=== PATIENT | female | born 2000 | race Two or more races ===

== ENCOUNTER 2019-08-10 22:46 | Emergency (ER) | payer OTHER ==
[2019-08-11] MEDS ORDERED: DEXAMETHASONE SOD PHOS INJ 10 MG/1 ML VIAL IM ONE (00:10)
[2019-08-11] MEDS ORDERED: ACETAMINOPHEN 325 MG TABLET PO ONE (00:10)
--- NOTE | 2019-08-11 00:12 | ER Document Report ---
ED Medical Screen (RME) - General Chief Complaint: Sore Throat Stated Complaint: THROAT SWELLING Time Seen by Provider: 08/11/19 00:06 Mode of Arrival: Ambulatory Information source: Patient Notes: Otherwise healthy 19-year-old female presented emergency department chief complaint of multiple symptoms. Patient reports sore throat of the last few days, fever up to 103 at home and abnormal vaginal discharge. Denies vaginal pain. Reports some dysuria. Exam: Bilateral tonsillar swelling noted with exudates. Unable to perform appropriate genitourinary/abdominal exam in triage I have greeted and performed a rapid initial assessment of this patient. A comprehensive ED assessment and evaluation of the patient, analysis of test results and completion of the medical decision making process will be conducted by additional ED providers. I have specifically instructed the patient or family members with the patient to immediately return to any nursing staff should anything change in the patient's condition or with their chief complaint. TRAVEL OUTSIDE OF THE [place] IN LAST 30 DAYS: No - Related Data Allergies/Adverse Reactions: No Known Allergies Allergy (Unverified 08/11/19 00:10) Physical Exam - Vital signs Vitals: Temp Pulse Resp BP Pulse Ox 101.0 F H 120 H 20 145/72 H 98 08/10/19 23:03 08/10/19 23:03 08/10/19 23:03 08/10/19 23:03 08/10/19 23:03 Course - Vital Signs Vital signs: Temp Pulse Resp BP Pulse Ox 101.0 F H 120 H 20 145/72 H 98 08/10/19 23:03 08/10/19 23:03 08/10/19 23:03 08/10/19 23:03 08/10/19 23:03
[2019-08-11 00:45] LABS: RBCS (WET MOUNT) FEW RBCS SEEN; T.VAGINALIS (WET MOUNT) NO TRICHOMONAS SEEN; WBCS (WET MOUNT) 1+ WBCS SEEN; YEAST (WET MOUNT) NO YEAST SEEN
[2019-08-11 00:48] LABS: APPEARANCE,URINE SLIGHTLY-CLOUDY; BILIRUBIN,URINE NEGATIVE (NEGATIVE); COLOR,URINE YELLOW; GLUCOSE, URINE NEGATIVE (NEGATIVE); KETONES,URINE NEGATIVE (NEGATIVE); LEUKOCYTE ESTERASE,URINE TRACE (NEGATIVE); NITRITE,URINE NEGATIVE (NEGATIVE); PROTEIN,URINE 100 mg/dL (NEGATIVE); URINE SPECIFIC GRAVITY 1.021; UROBILINOGEN,URINE NEGATIVE mg/dL (<2.0)
--- NOTE | 2019-08-11 01:13 | ER Document Report ---
HPI - HPI Time Seen by Provider: 08/11/19 00:06 Pain Level: 4 Notes: Otherwise healthy 19-year-old female presented emergency department chief complaint of multiple symptoms. Patient reports sore throat of the last few days, fever up to 103 at home and abnormal vaginal discharge. Denies vaginal pain. Reports some dysuria. - REPRODUCTIVE LMP: 1 mnth Reproductive: DENIES: : Past Medical History - General Information source: Patient - Social History Smoking Status: Never Smoker Family History: Reviewed & Not Pertinent Patient has suicidal ideation: No Patient has homicidal ideation: No - Medical History Medical History: Negative Surgical Hx: Negative - Immunizations Immunizations up to date: Yes Vertical Provider Document - CONSTITUTIONAL Notes: PHYSICAL EXAMINATION: GENERAL: Well-appearing, well-nourished and in no acute distress. HEAD: Atraumatic, normocephalic. EYES: Pupils equal round and reactive to light, extraocular movements intact, conjunctiva are normal. ENT: Nares patent, bilateral tonsillar swelling with exudates, no evidence of peritonsillar abscess, uvula midline.. Moist mucous membranes. NECK: Normal range of motion, supple without lymphadenopathy LUNGS: Breath sounds clear to auscultation bilaterally and equal. No wheezes rales or rhonchi. HEART: Regular rate and rhythm without murmurs ABDOMEN: Soft, nontender, nondistended abdomen. No guarding, no rebound. No masses appreciated. Female : No CVA tenderness Musculoskeletal: Normal range of motion, no pitting or edema. No cyanosis. NEUROLOGICAL: Cranial nerves grossly intact. Normal speech, normal gait. Normal sensory, motor exams PSYCH: Normal mood, normal affect. SKIN: Warm, Dry, normal turgor, no rashes or lesions noted. - INFECTION CONTROL TRAVEL OUTSIDE OF THE [place] IN LAST 30 DAYS: No Course - Re-evaluation Re-evalutation: Rapid strep was negative. Urinalysis consistent with urinary tract infection. Will start patient on antibiotics for urinary tract infection. Patient given strict ED return precautions regarding the sore throat symptoms to include worsening pain, difficulty swallowing or difficulty speaking. Patient verbalized understanding and agreement with same. - Vital Signs Vital signs: Temp Pulse Resp BP Pulse Ox 101.0 F H 120 H 20 145/72 H 98 08/10/19 23:03 08/10/19 23:03 08/10/19 23:03 08/10/19 23:03 08/10/19 23:03 - Laboratory Laboratory results interpreted by me: 08/11/19 00:20 Urine Protein 100 H Urine Blood SMALL H Ur Leukocyte Esterase TRACE H Discharge - Discharge Clinical Impression: Sore throat Urinary tract infection Qualifiers: Urinary tract infection type: site unspecified Hematuria presence: without adrien turia Qualified Code(s): N39.0 - Urinary tract infection, site not specified Condition: Stable Disposition: HOME, SELF-CARE Instructions: Sore Throat ([facility]), Urinary Tract Infection ([facility]) Additional Instructions: The urinalysis today shows that you do have a urinary tract infection. The rapid strep test was negative although your throat culture is pending. The cephalexin that I am giving you for your urinary tract infection would also treat strep throat. Please continue to drink plenty of fluids. Take Tylenol or ibuprofen for any pain or fever. Our culture nurse will call you if there is any abnormality on your throat culture. Return to the emergency department with new or worsening symptoms to include persistent vomiting, inability to swallow, any respiratory distress or any other concerning symptoms. Prescriptions: Cephalexin [Keflex] 500 mg PO BID #14 capsule Forms: Return to Work
[2019-08-11 01:32] VITALS: BP 115/66
[2019-08-11 02:10] LABS: CHLAM PCR NOT DETECTED (NOT DETECT)
== END 2019-08-11 02:37 | disposition home or self-care (01) ==
LOC: ER 22:46
DX: J02.9 Acute pharyngitis, unspecified (principal); N39.0 Urinary tract infection, site not specified; R50.9 Fever, unspecified; N89.8 Other specified noninflammatory disorders of vagina
CPT/HCPCS: 99283; 96372; 87070; 87210; 87880; 87077; 81001; 87491; 87591; J1100

== ENCOUNTER 2019-08-14 06:28 | Observation (INO) | payer OTHER ==
[2019-08-14] MEDS ORDERED: ONDANSETRON 4 MG TAB.RAPDIS PO ONE (06:51)
[2019-08-14 07:22] LABS: ABSOLUTE LYMPHOCYTES (AUTO) 0.8 10^3/uL (0.5-4.7); ABSOLUTE MONOCYTES (AUTO) 0.7 10^3/uL (0.1-1.4); ABSOLUTE NEUT (AUTO) 8.3 10^3/uL (1.7-8.2); BASOPHILS % (AUTO) 0.2 % (0-2); HEMATOCRIT 42.4 % (36.0-47.0); HEMOGLOBIN 14.5 g/dL (12.0-15.5); LYMPHOCYTES % (AUTO) 8.4 % (13-45); MEAN CORPUSCULAR HEMOGLOBIN 28.9 pg (27.0-33.4); MEAN CORPUSCULAR HGB CONC 34.2 g/dL (32.0-36.0); MEAN CORPUSCULAR VOLUME 85 fl (80-97); MONOCYTES % (AUTO) 7.1 % (3-13); PLATELET COUNT 197 10^3/uL (150-450); RED BLOOD COUNT 5.01 10^6/uL (3.72-5.28); RED CELL DISTRIBUTION WIDTH 13.4 % (11.5-14.0); SEGMENTED NEUTROPHILS % (AUTO) 84.3 % (42-78); TOTAL CELLS COUNTED % (AUTO) 100 %; WHITE BLOOD COUNT 9.8 10^3/uL (4.0-10.5)
[2019-08-14 07:52] LABS: A TYPE INFLUENZA AG NEGATIVE (NEGATIVE); B INFLUENZA AG NEGATIVE (NEGATIVE)
[2019-08-14] MEDS ORDERED: KETOROLAC TROMETHAMINE INJ/PF 30 MG/1 ML SDV IV ONE (10:43)
[2019-08-14] MEDS ORDERED: NORMAL SALINE 1000 ML 1,000 ML IV ONE (10:43)
[2019-08-14] MEDS ORDERED: DEXAMETHASONE SOD PHOS INJ 10 MG/1 ML VIAL IV ONE (10:43)
--- NOTE | 2019-08-14 11:02 | ER Document Report ---
ED ENT - General Chief Complaint: Sore Throat Stated Complaint: SORE THROAT Time Seen by Provider: 08/14/19 10:21 Notes: Patient is a 19-year-old female who presents to the emergency department with a chief complaint of sore throat. Patient reports that she has had a sore throat for about 6 days. Patient reports that she was seen here on August 10, states that she was prophylactically treated for gonorrhea and chlamydia, had a negative strep test. Patient reports she did go to the [facility] the next day was placed on antibiotics for urinary tract infection. Patient reports she did get these filled and is currently taking Keflex. Patient reports that her sore throat has significantly gotten worse and she feels like i t is very painful to swallow. Patient reports she continues to have blisters on both of her tonsils and that she feels slightly more swollen on the left side. Patient reports a fever of 101 and 103 at home. Patient reports nausea without vomiting. TRAVEL OUTSIDE OF THE [place] IN LAST 30 DAYS: No - Related Data Allergies/Adverse Reactions: No Known Allergies Allergy (Unverified 08/11/19 00:10) Home Medications: had rocephin and zithromax for GC and chlymdia Past Medical History - General Information source: Patient - Social History Smoking Status: Never Smoker Frequency of alcohol use: None Drug Abuse: None Lives with: Spouse/Significant other Family History: Reviewed & Not Pertinent Patient has suicidal ideation: No Patient has homicidal ideation: No - Past Medical History Cardiac Medical History: Reports: None Denies: Hx Atrial Fibrillation, Hx Congestive Heart Failure, Hx Heart Attack, Hx Hypertension Pulmonary Medical History: Reports: None Denies: Hx Asthma, Hx Bronchitis, Hx COPD, Hx Pneumonia, Hx Tuberculosis EENT Medical History: Reports: None Neurological Medical History: Reports: None. Denies: Hx Migraine, Hx Seizures Endocrine Medical History: Reports: None. Denies: Hx Diabetes Mellitus Type 1, Hx Diabetes Mellitus Type 2 Renal/ Medical History: Reports: None. Denies: Hx End Stage Renal Disease, Hx Kidney Stones Malignancy Medical History: Reports: None GI Medical History: Reports: None. Denies: Hx Gastroesophageal Reflux Disease, Hx Hiatal Hernia, Hx Ulcer Musculoskeletal Medical History: Reports None, Denies Hx Arthritis Skin Medical History: Reports None Psychiatric Medical History: Reports: None Denies: Hx Attention Deficit Hyperactivity Disorder, Hx Bipolar Disorder, Hx Depression, Hx Schizophrenia Traumatic Medical History: Reports: None Infectious Medical History: Reports: None Surgical Hx: Negative - Immunizations Immunizations up to date: Yes Review of Systems - Review of Systems Constitutional: No symptoms reported EENT: See HPI Cardiovascular: No symptoms reported Respiratory: No symptoms reported Gastrointestinal: See HPI Genitourinary: No symptoms reported Female Genitourinary: No symptoms reported Musculoskeletal: No symptoms reported Skin: No symptoms reported Hematologic/Lymphatic: No symptoms reported Neurological/Psychological: No symptoms reported Physical Exam - Vital signs Vitals: Temp Pulse Resp BP Pulse Ox 100.5 F H 113 H 16 126/81 H 98 08/14/19 06:36 08/14/19 06:36 08/14/19 06:36 08/14/19 06:36 08/14/19 06:36 Interpretation: Tachycardic, Febrile - Notes Notes: GENERAL: Well-appearing, well-nourished and in no acute distress. Muffled voice. HEAD: Atraumatic, normocephalic. EYES: Pupils equal round and reactive to light, extraocular movements intact, sclera anicteric, conjunctiva are normal. ENT: TMs normal, nares patent, patient does have a significant tonsillar hypertrophy +2 on the right and +3 on the left. Uvula is midline. There is an excessive amount of exudate on bilateral tonsils. Oropharynx is erythematous. Moist mucous membranes. NECK: Normal range of motion, supple with bilateral lymphadenopathy, no JVD. LUNGS: Breath sounds clear to auscultation bilaterally and equal. No wheezes rales or rhonchi. HEART: Regular rate and rhythm without murmurs, rubs or gallops. ABDOMEN: Soft, nontender, normoactive bowel sounds. No guarding, no rebound. No masses appreciated. BACK: No cervical, thoracic, lumbar midline tenderness. No saddle anesthesia, normal distal neurovascular exam. GENITOURINARY: Deferred. EXTREMITIES: Normal range of motion, no pitting or edema. No clubbing or cyanosis. NEUROLOGICAL: Cranial nerves II through XII grossly intact. Normal speech, normal gait. PSYCH: Normal mood, normal affect. SKIN: Warm, Dry, normal turgor, no rashes or lesions noted. Course - Re-evaluation Re-evalutation: 08/14/19 11:02 We will give the patient IV fluids, Toradol and Decadron for the throat pain and inflammation as well as obtaining a CT soft tissue of the neck to rule out peritonsillar abscess as she is significantly more swollen on the left than the right. Patient is able to swallow her own secretions at this time. 08/14/19 13:07 Upon re-evaluation patient reports feeling slightly better. Patient is not as hoarse in her voice. Patient able to swallow secretions. I did tell the patient to remain n.p.o. due to an intra-tonsillar abscess. Will initiate IV clindamycin. 08/14/19 13:38 Dr. Jackson to come to ER for consult and possible admission. 08/14/19 14:[address] Jackson who accepted admission. Patient remains stable, no airway compromise. No drooling, no stridor, patient reports feeling better. - Vital Signs Vital signs: Temp Pulse Resp BP Pulse Ox 99.0 F 103 H 17 125/77 100 08/14/19 11:26 08/14/19 11:26 08/14/19 11:26 08/14/19 11:26 08/14/19 11:26 - Laboratory Result Diagrams: 08/14/19 07:03 Laboratory results interpreted by me: 08/14/19 08/14/19 07:03 11:20 Lymph % (Auto) 8.4 L Absolute Neuts (auto) 8.3 H Seg Neutrophils % 84.3 H Urine Ketones 80 H 08/14/19 14:49 Laboratory 08/14/19 08/14/19 08/14/19 07:03 07:03 07:03 WBC 9.8 RBC 5.01 Hgb 14.5 Hct 42.4 MCV 85 MCH 28.9 MCHC 34.2 RDW 13.4 Plt Count 197 Lymph % (Auto) 8.4 L [place] % (Auto) 7.1 Eos % (Auto) 0.0 Baso % (Auto) 0.2 Absolute Neuts (auto) 8.3 H Absolute Lymphs (auto) 0.8 Absolute Monos (auto) 0.7 Absolute Eos (auto) 0.0 Absolute Basos (auto) 0.0 Seg Neutrophils % 84.3 H Serum HCG, Qual NEGATIVE Urine Color Urine Appearance Urine pH Ur Specific [place] Urine Protein Urine Glucose (UA) Urine Ketones Urine Blood Urine Nitrite Urine Bilirubin Urine Urobilinogen Ur Leukocyte Esterase Urine WBC (Auto) Urine RBC (Auto) Squamous Epi Cells Auto Urine Mucus (Auto) Urine Ascorbic Acid Monotest NEGATIVE Influenza A (Rapid) Influenza B (Rapid) Group A Strep Rapid 08/14/19 08/14/19 08/14/19 07:03 11:14 11:20 WBC RBC Hgb Hct MCV MCH MCHC RDW Plt Count Lymph % (Auto) [place] % (Auto) Eos % (Auto) Baso % (Auto) Absolute Neuts (auto) Absolute Lymphs (auto) Absolute Monos (auto) Absolute Eos (auto) Absolute Basos (auto) Seg Neutrophils % Serum HCG, Qual Urine Color YELLOW Urine Appearance CLEAR Urine pH 7.0 Ur Specific [place] 1.049 Urine Protein NEGATIVE Urine Glucose (UA) NEGATIVE Urine Ketones 80 H Urine Blood NEGATIVE Urine Nitrite NEGATIVE Urine Bilirubin NEGATIVE Urine Urobilinogen NEGATIVE Ur Leukocyte Esterase NEGATIVE Urine WBC (Auto) 1 Urine RBC (Auto) 2 Squamous Epi Cells Auto <1 Urine Mucus (Auto) RARE Urine Ascorbic Acid NEGATIVE Monotest Influenza A (Rapid) NEGATIVE Influenza B (Rapid) NEGATIVE Group A Strep Rapid NEGATIVE - Diagnostic Test Radiology reviewed: Reports reviewed Radiology results interpreted by me: 08/14/19 12:[address] 08/14/19 10:44 IMPRESSION: Bilateral tonsillitis with 2 cm intra tonsillar abscess on the left side Discharge - Discharge Clinical Impression: Abscess, intratonsillar, Throat pain in adult Condition: Stable Disposition: ADMITTED OBSERVATION Admitting Provider: Onwe (Hospitalist) Unit Admitted: Telemetry
--- NOTE | 2019-08-14 11:59 | RADIOLOGY REPORT (SQ) ---
EXAM DESCRIPTION: CT SOFT TISSUE NECK WITH COMPLETED DATE/TIME: 08/14/2019 11:24 am REASON FOR STUDY: r/o peritonsillar abscess, left throat swelling COMPARISON: None. TECHNIQUE: Post IV contrasted scanning from skull base through lung apices with review of bone, soft tissue and lung windows. Reconstructed coronal and sagittal MPR images reviewed. All images stored on PACS. All CT scanners at this facility use dose modulation, iterative reconstruction, and/or weight based d osing when appropriate to reduce radiation dose to as low as reasonably achievable (ALARA). [facility]: Dose Right [facility]: CareDose [facility]: Dose Right [facility]: Teradose 4D [facility]: [place] CONTRAST TYPE AND DOSE: contrast/concentration: Isovue 350.00 mg/ml; Total Contrast Delivered: 74.0 ml; Total Saline Delivered: 55.0 ml RENAL FUNCTION: None required. The patient is less than 50 years old. RADIATION DOSE: 22 mGy . LIMITATIONS: Streak artifact from metallic dental work FINDINGS: Bilateral pharyngeal tonsils are diffusely enlarged, each measuring about 3.5 x 2.8 x 2.5 cm in size. There is [id number] pharyngeal airway narrowing with medial bulging of the tonsils . In the upper half of the left pharyngeal tonsil, a hypodense area about 2 cm in diameters present on coronal image 37 and axial image 31 worrisome for intra tonsillar abscess. Parapharyngeal fat is well-maintained. There is also inflammation/infection adenoids which measure 1.5 cm in thickness on the sagittal recon structions. No middle ear effusions or mastoid fluid. Diffuse cervical adenopathy is present, the largest lymph node is along the left jugulodigastric yasmin on 2 x 1.3 cm in size. SKULL BASE: Inferior brain parenchyma in the field of view is normal. MAJOR SALIVARY GLANDS: No solid or cystic masses. No inflammatory changes. LYMPHADENOPATHY: As above MUCOSAL MASSES OR ASYMMETRY: Tonsils as above LARYNX/CORDS: No abnormal findings. VASCULAR STRUCTURES: The major vessels are patent. LUNG APICES: Clear. BONES: Intact. THYROID: Normal size. No masses. PARANASAL SINUSES: Clear. OTHER: No other significant finding. IMPRESSION: Bilateral tonsillitis with 2 cm intra tonsillar abscess on the left side TECHNICAL DOCUMENTATION: JOB ID: [id number] Quality ID # [id number]: Final reports with documentation of one or more dose reduction techniques (e.g., Au tomated exposure control, adjustment of the mA and/or kV according to patient size, use of iterative reconstruction technique) 2010 [employer]- All Rights Reserved Reading location - IP/workstation name: [email or web address]
[2019-08-14 12:51] LABS: APPEARANCE,URINE CLEAR; BILIRUBIN,URINE NEGATIVE (NEGATIVE); COLOR,URINE YELLOW; GLUCOSE, URINE NEGATIVE (NEGATIVE); KETONES,URINE 80 mg/dL (NEGATIVE); LEUKOCYTE ESTERASE,URINE NEGATIVE (NEGATIVE); NITRITE,URINE NEGATIVE (NEGATIVE); PROTEIN,URINE NEGATIVE (NEGATIVE); URINE SPECIFIC GRAVITY 1.049; UROBILINOGEN,URINE NEGATIVE mg/dL (<2.0)
[2019-08-14] MEDS ORDERED: CLINDAMYCIN 600 MG/D5W RTU 600 MG/50 ML RTUPB IV ONE (12:54)
[2019-08-14] MEDS ORDERED: ONDANSETRON HCL INJ/PF 4 MG/2 ML SDV IV PRN (14:39)
--- NOTE | 2019-08-14 15:00 | PDOC H&P ---
History of Present Illness Patient complains of: Sore throat, dysphagia History of Present Illness: SELINA GARCIA is a 19 year old female with no significant past medical history who presents to the hospital with complaints of soreness in the throat as well as difficulty swallowing food. Patient symptoms started several days ago during the [place] break and has persisted and gradually gotten worse. Admits to feeling feverish initially. Endorses associated odynophagia which has improved since receiving treatment in the ER. Denies any recent upper respiratory tract infection or dental procedures. Last saw dentist in December for wisdom tooth extraction. On the other dental history is cavities in the tooth. Patient denies any difficulty breathing. Past Medical History Cardiac Medical History: Reports: None Denies: Atrial Fibrillation, Congestive Heart Failure, Myocardial Infarction, Hypertension Pulmonary Medical History: Reports: None Denies: Asthma, Bronchitis, Chronic Obstructive Pulmonary Disease (COPD), Pneumonia, Tuberculosis EENT Medical History: Reports: None Neurological Medical History: Reports: None Denies: Migraine, Seizures Endocrine Medical History: Reports: None Denies: Diabetes Mellitus Type 1, Diabetes Mellitus Type 2 Renal/ Medical History: Reports: None Denies: End Stage Renal Disease Malignancy Medical History: Reports: None GI Medical History: Reports: None Denies: Gastroesophageal Reflux Disease, Hiatal Hernia Musculoskeltal Medical History: Reports: None Denies: Arthritis Skin Medical History: Reports: None Psychiatric Medical History: Reports: None Denies: Attention Deficit Hyperactivity Disorder, Bipolar Disorder, Depression Traumatic Medical History: Reports: None Hematology: Denies: Anemia, Sickle Cell Disease Infectious Medical History: Reports: None Past Surgical History Past Surgical History: Reports: Other - [place] teeth removal Social History Information Source: Patient Lives with: Spouse/Significant other Smoking Status: Never Smoker Electronic Cigarette use?: No Frequency of Alcohol Use: Social Hx Recreational Drug Use: No Hx Prescription Drug Abuse: No - Advance Directive Resuscitation Status: Full Code Family History Family History: None Parental Family History Reviewed: Yes Children Family History Reviewed: Yes Sibling(s) Family History Reviewed.: Yes Medication/Allergy Home Medications: Cephalexin [Keflex] 500 mg PO BID #14 capsule 08/11/19 Allergies/Adverse Reactions: No Known Allergies Allergy (Unverified 08/11/19 00:10) Review of Systems Constitutional: PRESENT: chills, fever(s) Eyes: ABSENT: visual disturbances Nose, Mouth, and Throat: PRESENT: sore throat. ABSENT: headache(s) Cardiovascular: ABSENT: chest pain Respiratory: ABSENT: cough, dyspnea Gastrointestinal: ABSENT: abdominal pain, nausea, vomiting Genitourinary: PRESENT: other - Recently diagnosed with UTI Musculoskeletal: ABSENT: back pain Integumentary: ABSENT: diaphoresis Neurological: ABSENT: confusion Psychiatric: ABSENT: depression Physical Exam Vital Signs: Temp Pulse Resp BP Pulse Ox 99.0 F 103 H 17 125/77 100 08/14/19 11:26 08/14/19 11:26 08/14/19 11:26 08/14/19 11:26 08/14/19 11:26 Intake & Output 08/13/19 08/14/19 08/15/19 06:59 06:59 06:59 Intake Total 1000 Balance 1000 Weight 69.6 kg General appearance: PRESENT: no acute distress, cooperative Eye exam: PRESENT: EOMI Mouth exam: PRESENT: moist, tongue midline, other - Bilateral enlarged tonsils with erythema and surrounding purulence. Neck exam: ABSENT: tracheal deviation Respiratory exam: PRESENT: clear to auscultation malia, symmetrical, unlabored. ABSENT: accessory muscle use, retraction, rhonchi, stridor, tachypnea, wheezes Cardiovascular exam: PRESENT: RRR, +S1, +S2. ABSENT: tachycardia GI/Abdominal exam: PRESENT: normal bowel sounds, soft. ABSENT: rebound, rigid, tenderness Neurological exam: PRESENT: alert, awake, oriented to person, oriented to place, oriented to time Results Laboratory Results: 08/14/19 07:03 08/14/19 08/14/19 08/14/19 07:03 07:03 11:20 WBC 9.8 RBC 5.01 Hgb 14.5 Hct 42.4 MCV 85 MCH 28.9 MCHC 34.2 RDW 13.4 Plt Count 197 Seg Neutrophils % 84.3 H Serum HCG, Qual NEGATIVE Urine Color YELLOW Urine Appearance CLEAR Urine pH 7.0 Ur Specific [place] 1.049 Urine Protein NEGATIVE Urine Glucose (UA) NEGATIVE Urine Ketones 80 H Urine Blood NEGATIVE Urine Nitrite NEGATIVE Ur Leukocyte Esterase NEGATIVE Urine WBC (Auto) 1 Urine RBC (Auto) 2 Impressions: Soft Tissue Neck CT 08/14/19 10:44 IMPRESSION: Bilateral tonsillitis with 2 cm intra tonsillar abscess on the left side Assessment and Plan - Diagnosis (1) Abscess, intratonsillar Is this a current diagnosis for this admission?: Yes Plan: CT showing bilateral tonsillitis with 2 cm left tonsillar abscess No evidence of airway compromise currently on exam Received Decadron 10 mg already. Will continue Decadron 6 mg every 8 hours Monitor vitals Clindamycin 600 mg every 8 hours. Toradol as needed pain. Zofran as needed nausea. IV fluids ENT consulted. (2) Urinary tract infection Qualifiers: Urinary tract infection type: acute cystitis Hematuria presence: without hematuria Qualified Code(s): N30.00 - Acute cystitis without hematuria Is this a current diagnosis for this admission?: Yes Plan: Patient states she was diagnosed with UTI recently by PCP and is on day 3/7 of Keflex Urinalysis seems to have cleared up. continue Keflex for 2 more days only. - Time Time Spent with patient: 35 or more minutes
[2019-08-14] MEDS: DEXAMETHASONE SOD PHOS INJ 10 MG/1 ML VIAL IV SCH (17:18)
[2019-08-14] MEDS: NORMAL SALINE 1000 ML 1,000 ML IV PRN (17:22)
[2019-08-14] MEDS: KETOROLAC TROMETHAMINE INJ/PF 30 MG/1 ML SDV IV PRN (21:45)
[2019-08-14] MEDS: CLINDAMYCIN 600 MG/D5W RTU 600 MG/50 ML RTUPB IV SCH (21:45)
[2019-08-14] MEDS: CEPHALEXIN 500 MG CAPSULE PO SCH (21:45)
[2019-08-15] MEDS: DEXAMETHASONE SOD PHOS INJ 10 MG/1 ML VIAL IV SCH ×2 (02:03→10:24)
[2019-08-15] MEDS: KETOROLAC TROMETHAMINE INJ/PF 30 MG/1 ML SDV IV PRN (04:37)
[2019-08-15] MEDS: NORMAL SALINE 1000 ML 1,000 ML IV PRN (04:38)
[2019-08-15] MEDS: CLINDAMYCIN 600 MG/D5W RTU 600 MG/50 ML RTUPB IV SCH ×2 (05:55→13:35)
[2019-08-15] MEDS: CEPHALEXIN 500 MG CAPSULE PO SCH (10:24)
--- NOTE | 2019-08-15 13:09 | PDOC CONSULTATION ---
Consultation Consult Date: 08/15/19 Provider Consulted: BHAVIN MARISCAL Consult reason:: r/o [employer]INCIPAL History of Present Illness Admission Date/PCP: 08/14/19 15:19 History of Present Illness: SELINA GARCIA is a 19 year old female was admitted for increasing sore throat and dysphagia. Initially evaluated in ER for same complaint and given IM decadron. States pain decreased after steroid. Asked to evaluate pt by hospitalist. Pt admited for sore throat. States feeling better since admitted and placed on IV steroids. Tolerating PO. Denies trismus. Past Medical History Cardiac Medical History: Reports: None Denies: Atrial Fibrillation, Congestive Heart Failure, Coronary Artery Disease, DVT, Myocardial Infarction, Hyperlipidema, Hypertension, Peripheral Vascular Disease, Pulmonary Embolism, Heart Murmur, Other Pulmonary Medical History: Reports: None Denies: Asthma, Bronchitis, Chronic Obstructive Pulmonary Disease (COPD), Pneumonia, Tuberculosis EENT Medical History: Reports: None Neurological Medical History: Reports: None Denies: Migraine, Seizures Endocrine Medical History: Reports: None Denies: Diabetes Mellitus Type 1, Diabetes Mellitus Type 2 Renal/ Medical History: Reports: None Denies: End Stage Renal Disease Malignancy Medical History: Reports: None GI Medical History: Reports: None Denies: Gastroesophageal Reflux Disease, Hiatal Hernia Musculoskeltal Medical History: Reports: None Denies: Arthritis Skin Medical History: Reports: None Psychiatric Medical History: Reports: None Denies: Attention Deficit Hyperactivity Disorder, Bipolar Disorder, Depression Traumatic Medical History: Reports: None Hematology: Denies: Anemia, Sickle Cell Disease Infectious Medical History: Reports: None Past Surgical History Past Surgical History: Reports: Other - [place] teeth removal Social History Lives with: Spouse/Significant other Smoking Status: Never Smoker Electronic Cigarette use?: No Frequency of Alcohol Use: Social Hx Recreational Drug Use: No Hx Prescription Drug Abuse: No - Advance Directive Resuscitation Status: Full Code Family History Family History: None Parental Family History Reviewed: Yes Children Family History Reviewed: Yes Sibling(s) Family History Reviewed.: Yes Medication/Allergy Home Medications: Cephalexin [Keflex] 500 mg PO BID #14 capsule 08/11/19 Acetaminophen [Tylenol 325 mg Tablet] 975 mg PO Q4HP PRN 08/15/19 Azithromycin 250 mg PO ONCE PRN 08/15/19 Azithromycin [Zithromax 1 gm Susp Packet] 1 gm PO ONCE PRN 08/15/19 Ceftriaxone Sodium [Ceftriaxone] 250 mg IV ONCE PRN 08/15/19 Ibuprofen 600 mg PO Q4HP PRN 08/15/19 Lidocaine HCl [Xylocaine 2% Viscous Soln 20 ml Udcup] 1 dose PO ASDIR PRN 08/15/19 Nitrofurantoin Monohyd/M-Cryst [Macrobid 100 mg Capsule] 100 mg PO BID 08/15/19 Phenazopyridine HCl [Pyridium 100 mg Tablet] 100 mg PO TID 08/15/19 Allergies/Adverse Reactions: No Known Allergies Allergy (Unverified 08/11/19 00:10) Review of Systems Eyes: ABSENT: visual disturbances Ears: ABSENT: hearing changes Nose, Mouth, and Throat: PRESENT: as per HPI Cardiovascular: ABSENT: chest pain, dyspnea on exertion, edema, orthropnea, palpitations Respiratory: ABSENT: cough, hemoptysis Gastrointestinal: ABSENT: abdominal pain, constipation, diarrhea, hematemesis, hematochezia, nausea, vomiting Physical Exam Vital Signs: Temp Pulse Resp BP Pulse Ox 98.2 F 69 18 120/56 L 100 08/15/19 07:42 08/15/19 07:42 08/15/19 07:42 08/15/19 07:42 08/15/19 07:42 Intake & Output 08/14/19 08/15/19 08/16/19 06:59 06:59 06:59 Intake Total 3020 50 Balance 3020 50 Weight 69.6 kg 68.3 kg General appearance: PRESENT: no acute distress Head exam: PRESENT: atraumatic Eye exam: PRESENT: conjunctiva pink, EOMI, PERRLA. ABSENT: scleral icterus Ear exam: PRESENT: normal external ear exam Mouth exam: PRESENT: other - tonsils enlarged with erythema and exudate. Peritonsillar areas flat. No evidence of [employer]ANT [employer]INCIPAL. Neck exam: PRESENT: lymphadenopathy Respiratory exam: PRESENT: clear to auscultation [place]. ABSENT: rales, rhonchi, wheezes Cardiovascular exam: PRESENT: RRR. ABSENT: diastolic murmur, rubs, systolic murmur Pulses: PRESENT: normal dorsalis pedis pul Vascular exam: PRESENT: normal capillary refill Results Laboratory Results: 08/14/19 07:03 Impressions: Soft Tissue Neck CT 08/14/19 10:44 IMPRESSION: Bilateral tonsillitis with 2 cm intra tonsillar abscess on the left side Assessment & Plan - Diagnosis (2) Acute tonsillitis due to infectious mononucleosis Is this a current diagnosis for this admission?: Yes Plan: 1. discussed with [facility] nurse. 2. continue with decadron and antibiotics. 3. recommend d/c home on po steroids and antibiotics 4. recommend pt f/u with sick call upon d/c 5. recommend out of work for rest of week 6. since pt does not have a h/o tonsillitis, do not recommend tonsillectomy
[2019-08-15 15:19] VITALS: BP 106/61
--- NOTE | 2019-08-15 15:28 | PDOC DISCHARGE SUMMARY ---
Impression - Admit/DC Date/PCP Admission Date/Primary Care Provider: 08/14/19 15:19 Discharge Date: 08/15/19 - Discharge Diagnosis (1) Abscess, intratonsillar Is this a current diagnosis for this admission?: Yes (2) Urinary tract infection Is this a current diagnosis for this admission?: Yes - Assessment Summary: Patient was admitted for evaluation for tonsillitis after CT of the soft tissue in the neck revealed bilateral tonsillar inflammation with a small 2 cm abscess in the left tonsil. Patient's vitals were stable throughout and never experienced any shortness of breath or work of breathing. Also no stridor was present throughout. Patient was started on Decadron IV as well as clindamycin with significant improvement in her symptoms. She received Toradol for pain. She was evaluated by ENT the next day who examined patient and believes patient has tonsillitis with no significant drainable abscess. ENT has cleared patient for discharge and recommends patient continue with the Decadron and antibiotics. Patient is being discharged with clindamycin p.o. for 13 days to complete a 14- day course of therapy and some Decadron for a few days to help with the swelling. Patient also had blood drawn for Monospot test to evaluate for infective mononucleosis and has been informed to follow-up with the results and if positive to abstain from any contact sports or activity for the next 6 weeks to 6 months. Patient has been given clear instructions on signs and symptoms to be watchful for that may indicate deterioration regarding her tonsillitis and to contact her doctor immediately if she experiences any of these. - Additional Information Resuscitation Status: Full Code Discharge Diet: As Tolerated Referrals: [facility] [Provider Group] (FOLLOW UP WITH YOUR PRIMARY AT [facility]) BHAVIN MARISCAL MD [ACTIVE STAFF] - Prescriptions: Clindamycin HCl 300 mg PO TID 13 Days capsule Dexamethasone [Decadron 4 Mg Tablet] 4 mg PO BID 4 Days tablet Home Medications: Acetaminophen [Tylenol 325 mg Tablet] 975 mg PO Q4HP PRN 08/15/19 Clindamycin HCl 300 mg PO TID 13 Days capsule 08/15/19 Dexamethasone [Decadron 4 Mg Tablet] 4 mg PO BID 4 Days tablet 08/15/19 Ibuprofen 600 mg PO Q4HP PRN 08/15/19 Lidocaine HCl [Xylocaine 2% Viscous Soln 20 ml Udcup] 1 dose PO ASDIR PRN 08/15/19 Phenazopyridine HCl [Pyridium 100 mg Tablet] 100 mg PO TID 08/15/19 History of Present Illiness History of Present Illness: SELINA GARCIA is a 19 year old female with no significant past medical history who presents to the hospital with complaints of soreness in the throat as well as difficulty swallowing food. Patient symptoms started several days ago during the [place] break and has persisted and gradually gotten worse. Admits to feeling feverish initially. Endorses associated odynophagia which has improved since receiving treatment in the ER. Denies any recent upper respiratory tract infection or dental procedures. Last saw dentist in December for wisdom tooth extraction. On the other dental history is cavities in the tooth. Patient denies any difficulty breathing. Physical Exam Vital Signs: Temp Pulse Resp BP Pulse Ox 97.8 F 76 18 106/61 100 08/15/19 15:17 08/15/19 15:17 08/15/19 15:17 08/15/19 15:17 08/15/19 15:17 Intake & Output 08/14/19 08/15/19 08/16/19 06:59 06:59 06:59 Intake Total 3020 1100 Balance 3020 1100 Weight 69.6 kg 68.3 kg General appearance: PRESENT: no acute distress, cooperative Throat exam: PRESENT: post pharyngeal erythema, tonsillar erythema Respiratory exam: PRESENT: clear to auscultation [place]. ABSENT: accessory muscle use, retraction, stridor Results Laboratory Results: WBC 9.8 10^3/uL (4.0-10.5) 08/14/19 07:03 RBC 5.01 10^6/uL (3.72-5.28) 08/14/19 07:03 Hgb 14.5 g/dL (12.0-15.5) 08/14/19 07:03 Hct 42.4 % (36.0-47.0) 08/14/19 07:03 MCV 85 fl (80-97) 08/14/19 07:03 MCH 28.9 pg (27.0-33.4) 08/14/19 07:03 MCHC 34.2 g/dL (32.0-36.0) 08/14/19 07:03 RDW 13.4 % (11.5-14.0) 08/14/19 07:03 Plt Count 197 10^3/uL (150-450) 08/14/19 07:03 Lymph % (Auto) 8.4 % (13-45) L 08/14/19 07:03 [place] % (Auto) 7.1 % (3-13) 08/14/19 07:03 Eos % (Auto) 0.0 % (0-6) 08/14/19 07:03 Baso % (Auto) 0.2 % (0-2) 08/14/19 07:03 Absolute Neuts (auto) 8.3 10^3/uL (1.7-8.2) H 08/14/19 07:03 Absolute Lymphs (auto) 0.8 10^3/uL (0.5-4.7) 08/14/19 07:03 Absolute Monos (auto) 0.7 10^3/uL (0.1-1.4) 08/14/19 07:03 Absolute Eos (auto) 0.0 10^3/uL (0.0-0.6) 08/14/19 07:03 Absolute Basos (auto) 0.0 10^3/uL (0.0-0.2) 08/14/19 07:03 Seg Neutrophils % 84.3 % (42-78) H 08/14/19 07:03 Serum HCG, Qual NEGATIVE (NEGATIVE) 08/14/19 07:03 Urine Color YELLOW 08/14/19 11:20 Urine Appearance CLEAR 08/14/19 11:20 Urine pH 7.0 (5.0-9.0) 08/14/19 11:20 Ur Specific [place] 1.049 08/14/19 11:20 Urine Protein NEGATIVE mg/dL (NEGATIVE) 08/14/19 11:20 Urine Glucose (UA) NEGATIVE mg/dL (NEGATIVE) 08/14/19 11:20 Urine Ketones 80 mg/dL (NEGATIVE) H 08/14/19 11:20 Urine Blood NEGATIVE (NEGATIVE) 08/14/19 11:20 Urine Nitrite NEGATIVE (NEGATIVE) 08/14/19 11:20 Urine Bilirubin NEGATIVE (NEGATIVE) 08/14/19 11:20 Urine Urobilinogen NEGATIVE mg/dL (<2.0) 08/14/19 11:20 Ur Leukocyte Esterase NEGATIVE (NEGATIVE) 08/14/19 11:20 Urine WBC (Auto) 1 /HPF 08/14/19 11:20 Urine RBC (Auto) 2 /HPF 08/14/19 11:20 Squamous Epi Cells Auto <1 /HPF 08/14/19 11:20 Urine Mucus (Auto) RARE /LPF 08/14/19 11:20 Urine Ascorbic Acid NEGATIVE (NEGATIVE) 08/14/19 11:20 Monotest NEGATIVE (NEGATIVE) 08/15/19 14:51 Influenza A (Rapid) NEGATIVE (NEGATIVE) 08/14/19 07:03 Influenza B (Rapid) NEGATIVE (NEGATIVE) 08/14/19 07:03 Group A Strep Rapid NEGATIVE (NEGATIVE) 08/14/19 11:14 Impressions: Soft Tissue Neck CT 08/14/19 10:44 IMPRESSION: Bilateral tonsillitis with 2 cm intra tonsillar abscess on the left side Plan Time Spent: Less than 30 Minutes Stroke Is this a Stroke Patient?: No Acute Heart Failure - Is this a Heart Failure Patient?: No
== END 2019-08-15 16:00 | disposition home or self-care (01) ==
LOC: ER 06:28 → EH 15:19 → 4S 17:01
PROVIDERS: ADMIT Internal Medicine; ATTEND Internal Medicine
DX: J36 Peritonsillar abscess (principal); N30.00 Acute cystitis without hematuria; R00.0 Tachycardia, unspecified; Z79.899 Other long term (current) drug therapy
CPT/HCPCS: 99284; 96361; 96375; 96365; 36415 ×2; 87070; 87880; 84703; 85025; 86308 ×2; 81001; 87804; 70491; G0378 ×3; S0119; J1885 ×2; J7030 ×2; J1100 ×2